=== PATIENT | female | born 1945 | race Caucasian/White ===

== ENCOUNTER 2018-08-17 04:55 | Inpatient (IN) | payer OTHER, BC ==
--- NOTE | 2018-08-17 05:31 | PDOC ---
Attending Attestation - Resident Resident Name: Rosendo Calderonson - ED Attending Attestation I have performed the following: I have examined & evaluated the patient, The case was reviewed & discussed with the resident, I agree w/resident's findings & plan - HPI HPI: 08/17/18 05:41 Pt comes with 1/2 day of CP that radiates to the left arm - Physicial Exam PE: 08/17/18 05:41 Agree with resident exam - Medical Decision Making 08/17/18 05:41 Card enzymes and basic labs pending. EKG is NSY CXR pending. Pt appears well. 08/17/18 06:06 CXR normal; no mediastinal widening. Heart Score/ECG Review - ECG Intrepretation Rhythm: Regular Rhythm - [place]: Normal - P and TN Delta Wave(s) Present: No WPW: No - QRS Poor R Wave Progression: No Q Wave Present: No - ST and T Early Repolarization: No Non Specific ST-T Wave changes: No Flattened T Waves: No Prolonged Q-T Interval: No - ECG Impressions Normal ECG: Yes Non-specific ST Elevation: No Ischemic Changes: No Bradycardia: No Torsades salvatore Pointes: No WPW: No
[2018-08-17] MEDS ORDERED: ASPIRIN 81 MG CHEWABLE TABLETS PO ONE (05:33)
--- NOTE | 2018-08-17 05:35 | PDOC ---
History of Present Illness - General Chief Complaint: Chest Pain Stated Complaint: CHEST PAIN Time Seen by Provider: 08/17/18 05:31 - History of Present Illness Initial Comments: 08/17/18 05:34 73 yo F with h/o RA, HTN, GERD, who p/w left sided chest pain. Patient reports acute onset of left sided chest discomfort this morning ( 1200 AM) radiating to left arm, and left sided neck, and back. Pain is tearing, 6/10, and aggravated with supine positioning. Pain non exertional, non peluritic. Patient pain not improved with omeprazole. Gas-x, mylanta, Carafate. Endorses SOB, Alexis x 2 weeks. No recent sick contacts. Recently returned from [facility] x 2 weeks. Patient denies SIMMONS, leg swelling/pain, palpitations, cough, wheezing, orthopnea, PND, N/V, F,C, urinary complaints, abdominal pain, diarrhea, BPR, hematuria, constipation, lightheadedness, weakness, sensory changes. PMHx: as noted above. Denies h/o ACS/MA, stent placement, CABG, abnml stress testing. Last stress test x 2 ears ago. Prior endoscopy ( nml) Dr. Sterling. Surgical: H/o hysterectomy, and lumpectomy ROS: as noted SHx: Denies tobacco use. Social Etoh. Denies IVDA Past History - Past Medical History Allergies/Adverse Reactions: Allergies Allergy/AdvReac Type Severity Reaction Status Date / Time shellfish derived Allergy Swelling Verified 12/10/14 10:19 hydromorphone HCl AdvReac Verified 12/10/14 10:19 [From Dilaudid] ketoconazole [From Nizoral] AdvReac Verified 12/10/14 10:19 Home Medications: Ambulatory Orders Fexofenadine HCl [Yanique] 60 mg PO DAILY 07/29/14 Folic Acid - 1 mg PO DAILY 07/29/14 Gabapentin [Neurontin -] 300 mg PO HS 07/29/14 Infliximab [Remicade Infusion -] 100 mg IV ASDIR 07/29/14 Levothyroxine [Synthroid -] 100 mcg PO DAILY 07/29/14 Methotrexate [Mexate -] 5 mg PO ASDIR 07/29/14 Metoprolol Succinate [Toprol Xl] 50 mg PO DAILY 07/29/14 Milnacipran HCl [Savella] 12.5 mg PO HS 07/29/14 Montelukast Na [Singulair -] 10 mg PO HS 07/29/14 Multivitamins [Multivit (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) Seizures: No Thyroid Disease: Yes - Surgical History Abdominal Surgery: No Appendectomy: No Cardiac Surgery: No Cholecystectomy: No Lung Surgery: No Neurologic Surgery: No Orthopedic Surgery: Yes (bunion sx) - Suicide/Smoking/Psychosocial Hx Smoking Status: No Smoking History: Never smoked Have you smoked in the past 12 months: No Number of Cigarettes Smoked Daily: 0 Information on smoking cessation initiated: No Hx Alcohol Use: No Drug/Substance Use Hx: No Substance Use Type: None Hx Substance Use Treatment: No Review of Systems - Review of Systems Comments:: 08/17/18 05:34 GENERAL/CONSTITUTIONAL: No fever or chills. No weakness. HEAD, EYES, EARS, NOSE AND THROAT: No change in vision. No ear pain or discharge. No sore throat. CARDIOVASCULAR: + chest pain and shortness of breath RESPIRATORY: No cough, wheezing, or hemoptysis. GASTROINTESTINAL: No nausea, vomiting, diarrhea or constipation. GENITOURINARY: No dysuria, frequency, or change in urination. MUSCULOSKELETAL: No joint or muscle swelling or pain. No neck or back pain. SKIN: No rash NEUROLOGIC: No headache, vertigo, loss of consciousness, or change in strength/ sensation. ENDOCRINE: No increased thirst. No abnormal weight change HEMATOLOGIC/LYMPHATIC: No anemia, easy bleeding, or history of blood clots. ALLERGIC/IMMUNOLOGIC: No hives or skin allergy. *Physical Exam - Vital Signs Last Vital Signs Temp Pulse Resp BP Pulse Ox 97.5 F L 73 18 164/83 98 08/17/18 05:01 08/17/18 05:01 08/17/18 05:01 08/17/18 05:01 08/17/18 05:01 - Physical Exam Comments: 08/17/18 05:35 GENERAL: Awake, alert, and fully oriented, in no acute distress HEAD: No signs of trauma, normocephalic, atraumatic EYES: PERRLA, EOMI, sclera anicteric, conjunctiva clear ENT: Hearing grossly normal, nares patent, oropharynx clear without exudates. Moist mucosa NECK: Normal ROM, supple, no lymphadenopathy, JVD, or masses LUNGS: No distress, speaks full sentences, clear to auscultation bilaterally HEART: Regular rate and rhythm, normal S1 and S2, no murmurs, rubs or gallops, peripheral pulses normal and equal bilaterally. ABDOMEN: + Epigatsirc ttp. Soft, NDS, normoactive bowel sounds. No guarding, no rebound. No masses. Neg CVA ttp. EXTREMITIES : Normal inspection, Normal range of motion, no edema. No clubbing or cyanosis. NEUROLOGICAL: Cranial nerves II through XII grossly intact. Normal speech, normal gait, no focal sensorimotor deficits SKIN: Warm, Dry, normal turgor, no rashes or lesions noted Moderate Sedation - Procedure Monitoring Vital Signs: Procedure Monitoring Vital Signs Temperature 97.5 F L 08/17/18 05:01 Pulse Rate 73 08/17/18 05:01 Respiratory Rate 18 08/17/18 05:01 Blood Pressure 164/83 08/17/18 05:01 O2 Sat by Pulse Oximetry (%) 98 08/17/18 05:01 Heart Score/ECG Review - Risk Factors Risk Factors Heart Score: Yes Positive family hx of cardiac disease ED Treatment Course - LABORATORY CBC & Chemistry Diagram: 08/17/18 05:40 08/17/18 05:40 Medical Decision Making - Medical Decision Making 08/17/18 05:36 3 yo F with h/o RA, HTN, GERD, who p/w left sided chest pain. Patient reports acute onset of left sided chest discomfort this morning ( 1200 AM) radiating to left arm, and left sided neck, and back. BP 164/83, vitals otherwise wnl, AF, A& Ox3. Physical exam notable for epigastria ttp. ACS/MA r/o. R/o PNA. Will consider pericarditis, pericardial or pleural effusion , gastritis, biliary dz., pancreatitis. Low suspicion AAA, Ao dissection. Ed Course: 08/17/18 05:57 Viscous Lidocaine, ASA, Metoprolol 50 mg, Ranitidine 08/17/18 06:02 EKG: NSR with absent acute JON/STD. Nml axis and interval duration. + Q waves I, AvL V4-V6. 08/17/18 06:51 Trop: Neg CBC,CMP: Unremarkable CXR: Unremarkable Plan to admit tele/obs 08/17/18 07:08 Patient endorsed to day team. Plan to admit tele/obs *DC/Admit/Observation/Transfer Diagnosis at time of Disposition: Chest pain at rest - Discharge Dispostion Condition at time of disposition: Stable Decision to Admit order: Yes - Referrals Referrals: Adilene Rodrigez MD [Primary Care Provider] - - Patient Instructions Printed Discharge Instructions: DI for Atypical Chest Pain, DI for Chest Pain - Post Discharge Activity
[2018-08-17] MEDS ORDERED: METOPROLOL TARTRATE 50 MG TABLET (FP) PO ONE (05:50)
[2018-08-17] MEDS ORDERED: LIDOCAINE VISCOUS 2% ORAL/TOP 100 ML BOTTLE MM ONE (05:56)
[2018-08-17] MEDS ORDERED: FAMOTIDINE 20 MG/50 ML IVPB 20 MG/50 ML MG IVPB ONE ×2 (05:56→06:18)
[2018-08-17 06:03] LABS: BASO % 0.3 % (0-2.0); EOS % 0.6 % (0-4.5); HEMOGLOBIN 13.8 GM/dL (10.7-15.3); LYMPH % 18.9 % (8-40); MCH 33.1 pg (25.7-33.7); MCHC 34.5 g/dl (32.0-36.0); MEAN CELL VOLUME 95.9 fl (80-96); MEAN PLT VOLUME 8.6 fl (7.5-11.1); MONO % 7.2 % (3.8-10.2); PLATELET COUNT 191 K/MM3 (134-434); RBC 4.17 M/mm3 (3.60-5.2); RDW 14.7 % (11.6-15.6); WHITE BLOOD COUNT 8.9 K/mm3 (4.0-10.0)
[2018-08-17] MEDS ORDERED: METOPROLOL TARTRATE 50 MG TABLET (FP) ONE (06:09)
[2018-08-17] MEDS ORDERED: ASPIRIN 81 MG CHEWABLE TABLETS ONE (06:09)
[2018-08-17] MEDS ORDERED: LIDOCAINE VISCOUS 2% ORAL/TOP 20 ML UNIT-DOSE CUP ONE (06:18)
[2018-08-17 06:33] LABS: ALBUMIN 3.6 g/dl (3.4-5.0); ALK PHOS 98 U/L (45-117); ANION GAP 7 MMOL/L (8-16); BILIRUBIN,TOTAL 0.2 mg/dL (0.2-1); BLOOD UREA NITROGEN 13 mg/dL (7-18); CALCIUM 8.9 mg/dL (8.5-10.1); CHLORIDE 105 mmol/L (98-107); CO2 28 mmol/L (21-32); GLUCOSE,RANDOM 98 mg/dL (74-106); INR 1.27 (0.83-1.09); POTASSIUM 3.4 mmol/L (3.5-5.1); SGOT/AST 31 U/L (15-37); SGPT/ALT 27 U/L (13-61); SODIUM 139 mmol/L (136-145); TOT PROT 7.7 g/dl (6.4-8.2)
[2018-08-17] MEDS ORDERED: POTASSIUM CHLORIDE TABS 20 MEQ TABLET.ER (FP) PO ONE ×2 (09:57→10:58)
--- NOTE | 2018-08-17 10:10 | PN ---
Teaching Attending Note Name of Resident: Ronald Saul ATTENDING PHYSICIAN STATEMENT I saw and evaluated the patient. I reviewed the resident's note and discussed the case with the resident. I agree with the resident's findings and plan as documented. SUBJECTIVE: This is a 73 year old woman with a history of HTN, GERD, hypothyroidism, RA, osteoporosis who comes to the ED complaining of left sided chest pain radiating to her neck, back, and left arm since 1am. The pain was worse when lying in bed and better when standing. She reports having palpitations and shortness of breath on exertion for the last 2 weeks. She went to the [facility] ~2 weeks ago. She denies calf pain, leg swelling. She sees a merchandise presentation associate, Dr. Joe Balderas, every 6 months. Her last stress test was negative ~2 years ago. OBJECTIVE: Vital Signs Period Temp Pulse Resp BP Sys/Castelan Pulse Ox Last 24 Hr 97.5 F 73 18 164/83 98 HEART: S1S2, RRR LUNGS: Bibasilar crackles ABDOMEN: Soft, non-tender, non-distended, normal BS EXTREMITIES: No edema Laboratory Tests 08/17/18 08/17/18 08/17/18 05:40 05:40 05:40 WBC 8.9 RBC 4.17 Hgb 13.8 Hct 40.0 MCV 95.9 MCH 33.1 MCHC 34.5 RDW 14.7 Plt Count 191 MPV 8.6 Absolute Neuts (auto) 6.5 Neutrophils % 73.0 Lymphocytes % 18.9 D Monocytes % 7.2 Eosinophils % 0.6 D Basophils % 0.3 Nucleated RBC % 0 PT with INR 15.00 H INR 1.27 H D-Dimer Sodium 139 Potassium 3.4 L Chloride 105 Carbon Dioxide 28 Anion Gap 7 L BUN 13 Creatinine 1.0 Creat Clearance w eGFR 54.50 Random Glucose 98 Calcium 8.9 Total Bilirubin 0.2 AST 31 ALT 27 Alkaline Phosphatase 98 Creatine Kinase 178 Creatine Kinase Index 0.8 CK-MB (CK-2) 1.6 Troponin I 0.02 Total Protein 7.7 Albumin 3.6 08/17/18 05:40 WBC RBC Hgb Hct MCV MCH MCHC RDW Plt Count MPV Absolute Neuts (auto) Neutrophils % Lymphocytes % Monocytes % Eosinophils % Basophils % Nucleated RBC % PT with INR INR D-Dimer 2524 H Sodium Potassium Chloride Carbon Dioxide Anion Gap BUN Creatinine Creat Clearance w eGFR Random Glucose Calcium Total Bilirubin AST ALT Alkaline Phosphatase Creatine Kinase Creatine Kinase Index CK-MB (CK-2) Troponin I Total Protein Albumin Home Medications Medication Instructions Recorded Fexofenadine HCl [Yanique] 90 mg PO DAILY 07/29/14 Folic Acid - 1 mg PO DAILY 07/29/14 Gabapentin [Neurontin -] 300 mg PO HS 07/29/14 Infliximab [Remicade Infusion -] 100 mg IV ASDIR 07/29/14 Levothyroxine [Synthroid -] 100 mcg PO DAILY 07/29/14 Methotrexate [Mexate -] 5 mg PO ASDIR 07/29/14 Metoprolol Succinate [Toprol Xl] 50 mg PO DAILY 07/29/14 Milnacipran HCl [Savella] 12.5 mg PO HS 07/29/14 Montelukast Na [Singulair -] 10 mg PO HS 07/29/14 Multivitamins [Multivit ([facility] 1 tab PO DAILY 07/29/14 Formulary)] Vitamin E 400 unit PO BID 07/29/14 Polyethylene Glycol 3350 [Miralax 17 gm PO DAILY #1 bottle 08/01/14 255 gm Btl -] Diphenoxylate 2.5/Atropine.025 1 combo PO Q4H 12/10/14 [Lomotil -] Milnacipran HCl [Savella] 12.5 mg PO DAILY 08/17/18 Omeprazole 40 mg PO DAILY 08/17/18 ASSESSMENT AND PLAN: This is a 73 year old woman with a history of HTN, GERD, hypothyroidism, RA, osteoporosis who presented to the ED with left sided chest pain radiating to her neck, back, and left arm with recent palpitations and SOBOE. 1. Chest pain, palpitations, SOBOE - HEART score 4, PERC 1, Wells 0 - Observe on telemetry - Serial troponins - Echocardiogram - D-dimer is elevated so will do chest CTA (or V/Q secondary to shellfish allergy) - will get pulmonary consult 2. HTN - Continue Toprol XL 3. Hypothyroidism - Continue Synthroid 4. GERD - Continue Prilosec 5. RA - On Remicade, Methotrexate
--- NOTE | 2018-08-17 10:13 | HP ---
CHIEF COMPLAINT: Chest pain PCP: Dr. Adilene Rodrigez HISTORY OF PRESENT ILLNESS: 73 y/o F w/PMH of RA, HTN, GERD, hypothyroidism, osteoporosis presents to the ER with L sided chest pain that began suddenly last night at approximately 11 pm. Pain was 6/10, constant, moved to her back, and then radiated to her L arm. Pain was reproducible only under her breasts. She took omeprazole, gas-x, mylanta, and carafate all with no relief. Pain was worse with laying down but improved with moving around. She has never had pain like this before. She also reports having VEGAS over the last 2-3 weeks. She has not been able to walk on the treadmill as long as usual and she has not been able to climb stairs like she normally can. 2 weeks ago she went to the [facility] but reports VEGAS was before her trip. She denies calf pain, swelling, redness. She also denies light- headedness, dizziness, diaphoresis, abd pain, change in bowel or urinary habits , fevers, chills, nausea, vomiting, sick contacts. She also reports fluttering of her heart in the last 2-3 weeks. Had stress test and echo 2 year ago which were both unremarkable as per pt. ER course was notable for: (1) ASA, pepcid, lidocaine, lopressor (2) (3) Recent Travel: [facility] 2 weeks ago PAST MEDICAL HISTORY:RA, HTN, GERD, hypothyroidism, osteoporosis PAST SURGICAL HISTORY: hysterectomy 1989, lumpectomy 1967 Social History: Smoking: denies Alcohol: 1 glass of wine with dinner occasionally Drugs: denies Family History: Mother passed from VT in 60s. Father passed from stroke in 60s. Allergies shellfish derived Allergy (Verified 12/10/14 10:19) Swelling hydromorphone HCl [From Dilaudid] Adverse Reaction (Verified 12/10/14 10:19) passed out ketoconazole [From Nizoral] Adverse Reaction (Verified 12/10/14 10:19) contacted hepatis HOME MEDICATIONS: Home Medications Medication Instructions Recorded Fexofenadine HCl [Yanique] 90 mg PO DAILY 07/29/14 Folic Acid - 1 mg PO DAILY 07/29/14 Gabapentin [Neurontin -] 300 mg PO HS 02/06/15 Infliximab [Remicade Infusion -] 100 mg IV ASDIR 07/29/14 Levothyroxine [Synthroid -] 100 mcg PO DAILY 07/29/14 Methotrexate [Mexate -] 5 mg PO ASDIR 07/29/14 Metoprolol Succinate [Toprol Xl] 50 mg PO DAILY 07/29/14 Milnacipran HCl [Savella] 12.5 mg PO HS 07/29/14 Montelukast Na [Singulair -] 10 mg PO HS 07/29/14 Multivitamins [Multivit ([facility] 1 tab PO DAILY 07/29/14 Formulary)] Vitamin E 400 unit PO BID 07/29/14 Polyethylene Glycol 3350 [Miralax 17 gm PO DAILY #1 bottle 08/01/14 255 gm Btl -] Diphenoxylate 2.5/Atropine.025 1 combo PO Q4H 12/10/14 [Lomotil -] Milnacipran HCl [Savella] 12.5 mg PO DAILY 08/17/18 Omeprazole 40 mg PO DAILY 08/17/18 REVIEW OF SYSTEMS CONSTITUTIONAL: Absent: fever, chills, diaphoresis, CARDIOVASCULAR: +heart fluttering, chest pain Absent: palpitations, lightheadedness, peripheral edema RESPIRATORY: VEGAS Absent: cough, wheezing GASTROINTESTINAL: Absent: abdominal pain, nausea, vomiting, melena, hematochezia GENITOURINARY: Absent: dysuria, frequency hematuria NEUROLOGIC: Absent: headache, dizziness PHYSICAL EXAMINATION Vital Signs - 24 hr 08/17/18 05:01 Temperature 97.5 F L Pulse Rate 73 Respiratory 18 Rate Blood Pressure 164/83 O2 Sat by Pulse 98 Oximetry (%) BP R arm: 133/62. L arm: 126/69 GENERAL: Awake, alert, and fully oriented, in no acute distress. HEAD: Normal with no signs of trauma. EYES: extraocular movements intact, sclera anicteric, conjunctiva clear. EARS, NOSE, THROAT: Ears normal, nares patent NECK: Normal range of motion, supple LUNGS: Crackles at b/l bases HEART: Regular rate and rhythm, normal S1 and S2. Reproducible pain under b/l breasts with palpation. ABDOMEN: Soft, nontender, not distended, normoactive bowel sounds LOWER EXTREMITIES: warm, well-perfused. No calf tenderness. No peripheral edema. NEUROLOGICAL: Cranial nerves II-XII grossly intact. Normal speech. Gait not observed. PSYCHIATRIC: Cooperative. Good eye contact. Appropriate mood and affect. SKIN: Warm, dry Laboratory Results - last 24 hr 08/17/18 08/17/18 08/17/18 05:40 05:40 05:40 WBC 8.9 RBC 4.17 Hgb 13.8 Hct 40.0 MCV 95.9 MCH 33.1 MCHC 34.5 RDW 14.7 Plt Count 191 MPV 8.6 Absolute Neuts (auto) 6.5 Neutrophils % 73.0 Lymphocytes % 18.9 D Monocytes % 7.2 Eosinophils % 0.6 D Basophils % 0.3 Nucleated RBC % 0 PT with INR 15.00 H INR 1.27 H Sodium 139 Potassium 3.4 L Chloride 105 Carbon Dioxide 28 Anion Gap 7 L BUN 13 Creatinine 1.0 Creat Clearance w eGFR 54.50 Random Glucose 98 Calcium 8.9 Total Bilirubin 0.2 AST 31 ALT 27 Alkaline Phosphatase 98 Creatine Kinase 178 Creatine Kinase Index 0.8 CK-MB (CK-2) 1.6 Troponin I 0.02 Total Protein 7.7 Albumin 3.6 Imaging: CXR - no acute pathology EKG: NSR @ 72 bpm, No ST segment elevations or depressions. No TWI. Q waves in lateral leads not seen on previous EKG in November 2014. ASSESSMENT/PLAN: 73 y/o F w/PMH of RA, HTN, GERD, hypothyroidism, osteoporosis presents to the ER with L sided chest pain. Also reports VEGAS x2-3 weeks and fluttering of heart. -Chest pain -rule out acs -Trend trops -rule out PE. Low risk per WELLS score. Will check D-dimer. If positive will have to consider V/Q scan due to shellfish allergy -D-Dimer is back at 2500. Will get pulmonary to see her for possible V/Q -Pain control with tylenol. Pt does not want stronger pain meds at this time -Check TSH -Unlikely to be dissection - BP R arm: 133/62. L arm 126/69 -VEGAS -tele monitoring -rule out PE. Low risk per WELLS score. Will check D-dimer. If positive will have to consider V/Q scan due to shellfish allergy -D-Dimer is back at 2500. Will get pulmonary to see her for possible V/Q -Will get LE duplex -Pulm consulted -Case discussed with Dr. Goel -Echo -Pt with inspiratory crackles. May have rheumatoid arthritis associated ILD. -Fluttering sensation -r/o arrhythmia -tele monitoring -Echo -HTN -c/w toprol -RA -c/w methotrexate 2.5 mg Friday and Friday weekly -Hypothyroidism -Check TSH, c/w synthroid -DVT ppx -Heparin 5000 units sq q8h -FEN -No fluids currently -Hypokalemia - K-dur PO 40 mg once, monitor electrolytes -Cardiac diet -Dispo Visit type - Emergency Visit Emergency Visit: Yes ED Registration Date: 08/17/18 Care time: The patient presented to the Emergency Department on the above date and was hospitalized for further evaluation of their emergent condition. - New Patient This patient is new to me today: Yes Date on this admission: 08/17/18 - Critical Care Critical Care patient: No
[2018-08-17] MEDS ORDERED: HEPARIN NA (PORCINE) 5,000 UNITS/ML 1ML VIAL ONE ×2 (10:58→14:11)
[2018-08-17] MEDS: HEPARIN NA (PORCINE) 5,000 UNITS/ML 1ML VIAL SQ SCH ×3 (11:10→22:47)
--- NOTE | 2018-08-17 14:05 | CON.PULM ---
Consult Consult Specialty:: PULMONARY Referred by:: Dr. Saunders Reason for Consultation:: r/o PE - History of Present Illness Chief Complaint: chest pain History of Present Illness: 73yo female with h/o HTN, hypothyroidism, GERD, hiatal hernia, rheumatoid arthritis on Remicade who was admitted with sudden onset chest pain. Pain described as constant, "tearing" sensation, across her chest and back, radiating to left arm, worse when lying supine. No fevers, chills or sweats. Denies leg pain or swelling, history of leg trauma. She did take a trip to the [facility] recently and noticed some dyspnea on exertion but after walking "miles. " She is allergic to shellfish, reports generalized swelling. Given pepcid, lidocaine in the ER with significant improvement in her symptoms but back pain persists. - History Source History Provided By: Patient, Medical Record Limitations to Obtaining History: No Limitations - Past Medical History Cardio/Vascular: Yes: HTN Gastrointestinal: Yes: GERD, Hiatal Hernia Endocrine: Yes: Hypothyroidism - Alcohol/Substance Use Hx Alcohol Use: No - Smoking History Smoking history: Never smoked Have you smoked in the past 12 months: No Aproximately how many cigarettes per day: 0 Home Medications - Allergies Allergies/Adverse Reactions: Allergies Allergy/AdvReac Type Severity Reaction Status Date / Time shellfish derived Allergy Swelling Verified 12/10/14 10:19 hydromorphone HCl AdvReac Verified 12/10/14 10:19 [From Dilaudid] ketoconazole [From Nizoral] AdvReac Verified 12/10/14 10:19 - Home Medications Home Medications: Ambulatory Orders Fexofenadine HCl [Yanique] 90 mg PO DAILY 07/29/14 Folic Acid - 1 mg PO DAILY 07/29/14 Gabapentin [Neurontin -] 300 mg PO HS 07/29/14 Infliximab [Remicade Infusion -] 100 mg IV ASDIR 07/29/14 Levothyroxine [Synthroid -] 100 mcg PO DAILY 07/29/14 Methotrexate [Mexate -] 5 mg PO ASDIR 07/29/14 Metoprolol Succinate [Toprol Xl] 50 mg PO DAILY 07/29/14 Milnacipran HCl [Savella] 12.5 mg PO HS 07/29/14 Montelukast Na [Singulair -] 10 mg PO HS 07/29/14 Multivitamins [Multivit ([facility] Formulary)] 1 tab PO DAILY 07/29/14 Vitamin E 400 unit PO BID 07/29/14 Polyethylene Glycol 3350 [Miralax 255 gm Btl -] 17 gm PO DAILY #1 bottle Diphenoxylate 2.5/Atropine.025 [Lomotil -] 1 combo PO Q4H 12/10/14 Milnacipran HCl [Savella] 12.5 mg PO DAILY 08/17/18 Omeprazole 40 mg PO DAILY 08/17/18 Review of Systems - Review of Systems Constitutional: denies: Chills, Fever Eyes: denies: Recent Change in Vision HENT: denies: Nasal Congestion, Throat Pain Neck: denies: Tenderness Cardiovascular: reports: Chest Pain, Palpitations, Shortness of Breath. denies : Edema Respiratory: denies: Cough, Hemoptysis, Wheezing Gastrointestinal: denies: Abdominal Pain, Nausea, Vomiting Genitourinary: denies: Dysuria, Hematuria Neurological: denies: Dizziness, Headache Endocrine: denies: Unexplained Weight Loss Physical Exam Vital Sings: Vital Signs Temperature 97.5 F L 08/17/18 05:01 Pulse Rate 60 08/17/18 11:12 Respiratory Rate 16 08/17/18 11:12 Blood Pressure 140/68 08/17/18 11:12 O2 Sat by Pulse Oximetry (%) 100 08/17/18 11:12 Constitutional: Yes: Calm Eyes: Yes: Conjunctiva Clear, EOM Intact HENT: Yes: Atraumatic, Normocephalic Neck: Yes: Supple, Trachea Midline Cardiovascular: Yes: Regular Rate and Rhythm Respiratory: Yes: Diminished (decreased breath sounds at the bases) ...Clubbing: No Gastrointestinal: Yes: Normal Bowel Sounds, Soft. No: Tenderness Edema: No Neurological: Yes: Alert, Oriented Labs: CBC, BMP 08/17/18 05:40 08/17/18 05:40 Imaging - Results Chest X-ray: Report Reviewed, Image Reviewed (no infiltrates) Problem List - Problems (1) Chest pain at rest Code(s): R07.9 - CHEST PAIN, UNSPECIFIED (2) Rheumatoid arthritis Code(s): M06.9 - RHEUMATOID ARTHRITIS, UNSPECIFIED (3) Hypertension Code(s): I10 - ESSENTIAL (PRIMARY) HYPERTENSION (4) Hypothyroidism Code(s): E03.9 - HYPOTHYROIDISM, UNSPECIFIED Assessment/Plan Atypical Chest Pain r/o PE Rheumatoid Arthritis HTN Hypothyroidism - chest pain atypical and improved without treatment but with an elevated D- dimer, mild hypoxia, and a clear CXR - pt without alternative diagnosis so will order V/Q scan to r/o PE as her shellfish allergy is severe - pt declining empiric anticoagulation at this time - O2 as needed to keep Spo2 >90% Thank you for this consult Tyrone Damon MD
[2018-08-17] MEDS: METHOTREXATE 2.5 MG TABLET PO SCH (14:30)
[2018-08-17 15:37] VITALS: BMI 23.1
--- NOTE | 2018-08-17 15:46 | ECHO ---
Name: WILLIAN JERONIMO Exam:Adult Echocardiogram Study Date: 08/17/2018 12:12 PM Age: 73 yrs Height: 60 in Weight: 123 lb BSA: 1.5 m2 MMode/2D Measurements & Calculations IVSd: 1.3 cm Ao root diam: 2.8 cm LVIDd: 3.5 cm LA dimension: 3.0 cm LVIDs: 2.4 cm LVPWd: 0.87 cm EDV(Teich): 49.7 ml ESV(Teich): 20.7 ml Doppler Measurements & Calculations MV E max tigre: 52.4 cm/sec AI P1/2t: 604.4 msec MV A max tigre: 86.3 cm/sec MV E/A: 0.61 MV dec time: 0.14 sec AI max tigre: 472.5 cm/sec MR max tigre: 465.8 cm/sec AI max P.3 mmHg MR max P.7 mmHg AI dec slope: 229.0 cm/sec2 TR max tigre: 209.0 cm/sec Med Peak E' Tigre: 5.5 cm/sec TR max P.5 mmHg Med E/e': 9.4 Lat Peak E' Tigre: 6.6 cm/sec Lat E/e': 7.9 PI Vmax: 187.3 cm/sec Procedure A complete two-dimensional transthoracic echocardiogram was performed (2D, M-mode, Doppler and color flow Doppler). Left Ventricle The left ventricle is normal in size. There is mild concentric left ventricular hypertrophy. Left rosanne tricular systolic function is normal. Ejection Fraction = 55-60%. Grade I diastolic dysfunction, (abnormal rel axation pattern). Ratio E/E'= 11. No regional wall motion abnormalities noted. Right Ventricle The right ventricle is normal size. The right ventricular systolic function is normal. Atria The left atrial size is normal. Right atrial size is normal. Mitral Valve The mitral valve is normal in structure and function. There is trace to mild mitral regurgitation. Tricuspid Valve The tricuspid valve is normal in structure and function. There is mild tricuspid regurgitation. Right ventricular systolic pressure is normal. Aortic Valve The aortic valve is normal in structure and function. Mild aortic regurgitation. Pulmonic Valve The pulmonic valve is not well visualized. Great Vessels The aortic root is normal size. Pericardium/Pleura There is no pericardial effusion. Interpretation Summary The left ventricle is normal in size. There is mild concentric left ventricular hypertrophy. Left ventricular systolic function is normal. No regional wall motion abnormalities noted. Ejection Fraction = 55-60%. Grade I diastolic dysfunction, (abnormal relaxation pattern). Ratio E/E'= 11 The right ventricular systolic function is normal. The left atrial size is normal. Right atrial size is normal. There is trace to mild mitral regurgitation. There is mild tricuspid regurgitation. Right ventricular systolic pressure is normal. Mild aortic regurgitation. There is no pericardial effusion. Previous study is not available for comparison Dheeraj Parada MD 08/17/2018 03:45 PM
[2018-08-17] MEDS: predniSONE 10 MG TABLET (UD) PO SCH (18:17)
--- NOTE | 2018-08-17 21:26 | EKG ---
Test Reason : Blood Pressure : / mmHG Vent. Rate : 072 BPM Atrial Rate : 072 BPM P-R Int : 140 ms QRS Dur : 076 ms QT Int : 412 ms P-R-T Axes : 060 024 064 degrees QTc Int : 451 ms NORMAL SINUS RHYTHM POSSIBLE LATERAL INFARCT (CITED ON OR BEFORE 10-DEC-2014) ABNORMAL ECG WHEN COMPARED WITH ECG OF 10-DEC-2014 11:02, NO SIGNIFICANT CHANGE WAS FOUND Confirmed by DEBBIE MCKEON, COURT ([id number]) on 08/17/2018 9:25:36 PM Referred By: Confirmed By:COURT LEWIS MD
[2018-08-17] MEDS ORDERED: MONTELUKAST NA 10 MG TABLET PO SCH (22:00)
[2018-08-18] MEDS: HEPARIN NA (PORCINE) 5,000 UNITS/ML 1ML VIAL SQ SCH (05:38)
[2018-08-18] MEDS ORDERED: diphenhydrAMINE HCL 25 MG CAPSULE (FP) PO ONE (07:00)
[2018-08-18] MEDS ORDERED: LEVOTHYROXINE NA 100 MCG TABLET (FP) PO SCH (07:00)
[2018-08-18] MEDS ORDERED: predniSONE 10 MG TABLET (UD) PO SCH ×2 (07:00)
[2018-08-18 07:27] VITALS: BP 114/70; PULSE 68; TEMP 97.8
[2018-08-18 07:55] LABS: HEMATOCRIT 39.2 % (32.4-45.2); HEMOGLOBIN 13.5 GM/dL (10.7-15.3); LYMPH % 12.3 % (8-40); MCHC 34.5 g/dl (32.0-36.0); MEAN CELL VOLUME 95.7 fl (80-96); MEAN PLT VOLUME 9.1 fl (7.5-11.1); MONO % 1.8 % (3.8-10.2); NEUT % 85.9 % (42.8-82.8); PLATELET COUNT 204 K/MM3 (134-434); RBC 4.09 M/mm3 (3.60-5.2); RDW 14.3 % (11.6-15.6); WHITE BLOOD COUNT 6.5 K/mm3 (4.0-10.0)
[2018-08-18] MEDS ORDERED: POTASSIUM CHLORIDE TABS 20 MEQ TABLET.ER (FP) PO ONE (08:51)
[2018-08-18 09:07] LABS: ALBUMIN 3.8 g/dl (3.4-5.0); ALK PHOS 45 U/L (45-117); ANION GAP 9 MMOL/L (8-16); BILIRUBIN,TOTAL 0.6 mg/dL (0.2-1); BLOOD UREA NITROGEN 16 mg/dL (7-18); CALCIUM 8.7 mg/dL (8.5-10.1); CHLORIDE 105 mmol/L (98-107); CO2 22 mmol/L (21-32); CREATININE 0.8 mg/dL (0.55-1.3); GLUCOSE,RANDOM 135 mg/dL (74-106); MAGNESIUM 2.2 mg/dL (1.8-2.4); PHOSPHOROUS 4.3 mg/dL (2.5-4.9); POTASSIUM 4.3 mmol/L (3.5-5.1); SGOT/AST 25 U/L (15-37); SGPT/ALT 31 U/L (13-61); SODIUM 136 mmol/L (136-145); TOT PROT 7.9 g/dl (6.4-8.2)
[2018-08-18] MEDS ORDERED: PT OWN MED DRAWER 7, Y5N ONE (09:11)
[2018-08-18] MEDS: predniSONE 10 MG TABLET (UD) PO SCH (09:18)
--- NOTE | 2018-08-18 09:18 | PN ---
Physical Exam: SUBJECTIVE: Patient seen and examined OBJECTIVE: Vital Signs Period Temp Pulse Resp BP Sys/Castelan Pulse Ox Last 24 Hr 97.8 F-98.7 F 60-78 16-20 107-141/63-74 94-100 GENERAL: The patient is awake, alert, and fully oriented, in no acute distress. HEAD: Normal with no signs of trauma. EYES: PERRL, extraocular movements intact, sclera anicteric, conjunctiva clear. No ptosis. ENT: Ears normal, nares patent, oropharynx clear without exudates, moist mucous membranes. NECK: Trachea midline, full range of motion, supple. LUNGS: Breath sounds equal, clear to auscultation bilaterally, no wheezes, no crackles, no accessory muscle use. HEART: Regular rate and rhythm, S1, S2 without murmur, rub or gallop. ABDOMEN: Soft, nontender, nondistended, normoactive bowel sounds, no guarding, no rebound, no hepatosplenomegaly, no masses. EXTREMITIES: 2+ pulses, warm, well-perfused, no edema. NEUROLOGICAL: Cranial nerves II through XII grossly intact. Normal speech, gait not observed. PSYCH: Normal mood, normal affect. SKIN: Warm, dry, normal turgor, no rashes or lesions noted Laboratory Results - last 24 hr 08/17/18 08/17/18 08/17/18 05:40 05:40 11:12 D-Dimer 2524 H Sodium 139 Potassium 3.4 L Chloride 105 Carbon Dioxide 28 Anion Gap 7 L BUN 13 Creatinine 1.0 Creat Clearance w eGFR 54.50 Random Glucose 98 Calcium 8.9 Phosphorus Magnesium Total Bilirubin 0.2 AST 31 ALT 27 Alkaline Phosphatase 98 Creatine Kinase 178 75 Creatine Kinase Index 0.8 CK-MB (CK-2) 1.6 Troponin I 0.02 < 0.02 Total Protein 7.7 Albumin 3.6 TSH 3.83 H 08/18/18 06:28 D-Dimer Sodium 136 Potassium 4.3 Chloride 105 Carbon Dioxide 22 Anion Gap 9 BUN 16 Creatinine 0.8 Creat Clearance w eGFR > 60 Random Glucose 135 H Calcium 8.7 Phosphorus 4.3 Magnesium 2.2 Total Bilirubin 0.6 AST 25 ALT 31 Alkaline Phosphatase 45 Creatine Kinase Creatine Kinase Index CK-MB (CK-2) Troponin I Total Protein 7.9 Albumin 3.8 TSH Active Medications Generic Name Dose Route Start Last Admin Trade Name Freq PRN Reason Stop Dose Admin Folic Acid 1 mg 08/18/18 10:00 Folic Acid - PO DAILY [facility] Gabapentin 300 mg 08/18/18 22:00 Neurontin - PO HS [facility] Heparin Sodium (Porcine) 5,000 unit 08/17/18 09:45 08/18/18 05:38 Heparin - SQ 5,000 unit TID [facility] Administration Levothyroxine Sodium 100 mcg 08/18/18 07:00 08/18/18 06:25 Synthroid - PO 100 mcg ACBK [facility] Administration Methotrexate 2.5 mg 08/17/18 12:00 08/17/18 14:30 Mexate - PO 2.5 mg MoTu@1000 [facility] Administration Metoprolol Succinate 50 mg 08/18/18 10:00 Toprol Xl - PO DAILY [facility] Montelukast Sodium 10 mg 08/17/18 22:00 08/17/18 22:47 Singulair - PO 10 mg HS [facility] Administration Multivitamins/Minerals/Vitamin C 1 tab 08/18/18 10:00 Tab-A-Vit - PO DAILY [facility] Pantoprazole Sodium 40 mg 08/18/18 10:00 Protonix - PO DAILY [facility] Prednisone 50 mg 08/17/18 19:00 08/17/18 18:17 Deltasone - PO 50 mg DAILY [facility] Administration Prednisone 50 mg 08/18/18 00:00 08/18/18 00:08 Deltasone - PO 50 mg DAILY@0000 [facility] Administration Prednisone 50 mg 08/18/18 07:00 08/18/18 06:25 Deltasone - PO 50 mg DAILY@0700 [facility] Administration CBC, BMP 08/18/18 06:28 ASSESSMENT/PLAN:
[2018-08-18] MEDS: METHOTREXATE 2.5 MG TABLET PO SCH (09:20)
[2018-08-18] MEDS ORDERED: PANTOPRAZOLE 40 MG TABLET (FP) PO SCH (10:00)
[2018-08-18] MEDS ORDERED: METHOTREXATE 2.5 MG TABLET PO SCH (10:00)
[2018-08-18] MEDS ORDERED: MULTIVITAMINS (DAILY MVI) TABLET (FP) PO SCH (10:00)
[2018-08-18] MEDS ORDERED: FOLIC ACID 1 MG TABLET (FP) PO SCH (10:00)
--- NOTE | 2018-08-18 12:20 | PN ---
Progress Note, Physician History of Present Illness: PULMONARY ALERT FEELING BETTER,,-SOB ,CHEST PAIN IMPROVED. CHEST CTA - FOR PE, SMALL RUL NODULE - Current Medication List Current Medications: Active Medications Folic Acid (Folic Acid -) 1 mg PO DAILY [facility] Last Admin: 08/18/18 09:18 Dose: 1 mg Gabapentin (Neurontin -) 300 mg PO HS [facility] Heparin Sodium (Porcine) (Heparin -) 5,000 unit SQ TID [facility] Last Admin: 08/18/18 05:38 Dose: 5,000 unit Levothyroxine Sodium (Synthroid -) 100 mcg PO ACBK [facility] Last Admin: 08/18/18 06:25 Dose: 100 mcg Methotrexate (Mexate -) 2.5 mg PO MoTu@1000 [facility] Last Admin: 08/18/18 09:20 Dose: 2.5 mg Metoprolol Succinate (Toprol Xl -) 50 mg PO DAILY [facility] Last Admin: 08/18/18 09:19 Dose: 50 mg Montelukast Sodium (Singulair -) 10 mg PO [facility] Last Admin: 08/17/18 22:47 Dose: 10 mg Multivitamins/Minerals/Vitamin C (Tab-A-Vit -) 1 tab PO DAILY [facility] Last Admin: 08/18/18 09:18 Dose: 1 tab Pantoprazole Sodium (Protonix -) 40 mg PO DAILY [facility] Last Admin: 08/18/18 09:18 Dose: 40 mg Prednisone (Deltasone -) 50 mg PO DAILY [facility] Last Admin: 08/18/18 09:18 Dose: 50 mg Prednisone (Deltasone -) 50 mg PO DAILY@0000 [facility] Last Admin: 08/18/18 00:08 Dose: 50 mg Prednisone (Deltasone -) 50 mg PO DAILY@0700 [facility] Last Admin: 08/18/18 06:25 Dose: 50 mg - Objective Vital Signs: Vital Signs Temperature 97.8 F 08/18/18 07:21 Pulse Rate 68 08/18/18 07:21 Respiratory Rate 20 08/18/18 07:28 Blood Pressure 114/70 08/18/18 07:21 O2 Sat by Pulse Oximetry (%) 94 L 08/18/18 07:28 Constitutional: Yes: Well Nourished, Calm Eyes: Yes: WNL HENT: Yes: WNL Neck: Yes: WNL Cardiovascular: Yes: Regular Rate and Rhythm, S1, S2 Respiratory: Yes: CTA Bilaterally Gastrointestinal: Yes: Normal Bowel Sounds, Soft Extremities: Yes: WNL Edema: No Labs: CBC, BMP 08/18/18 06:28 08/18/18 06:28 INR, PTT INR 1.27 (0.83-1.09) H 08/17/18 05:40 - ....Imaging Cat Scan: Report Reviewed, Image Reviewed Assessment/Plan Problem List - Problems (1) Chest pain at rest Code(s): R07.9 - CHEST PAIN, UNSPECIFIED (2) Rheumatoid arthritis Code(s): M06.9 - RHEUMATOID ARTHRITIS, UNSPECIFIED (3) Hypertension Code(s): I10 - ESSENTIAL (PRIMARY) HYPERTENSION (4) Hypothyroidism Code(s): E03.9 - HYPOTHYROIDISM, UNSPECIFIED Assessment/Plan Atypical Chest Pain improved r/o PE CHEST CTA NEGATIVE FOR PE Rheumatoid Arthritis HTN Hypothyroidism - chest pain atypical and improved without treatment - O2 as needed to keep Spo2 >90% - F/U chest ct outpatient [address] WHITT
--- NOTE | 2018-08-18 14:15 | PN ---
Teaching Attending Note Name of Resident: Renaldo Carpio ATTENDING PHYSICIAN STATEMENT I saw and evaluated the patient. I reviewed the resident's note and discussed the case with the resident. I agree with the resident's findings and plan as documented. SUBJECTIVE: no fever o chills . No PC or SOB. feels fine. no wheezing or throat closing , or itching. No rash . has chronic rash on her face, but this is prior to her admission OBJECTIVE: NAD , macular rash on cheeks Cv: RRR Lungs: CTAB , no wheezing or crackles Ext: no edema or erythema ASSESSMENT AND PLAN: 73 y/o lady with h/o HTN, GERD, hypothyroidism, RA, osteoporosis, and recent travel who presented with chest pain 1- CP , atypical , resolved. no evidence of ACS. echo reviewed. CTA of chest done after premedications and didnot show PE. no signs of anaphylaxis or allergic reaction to the dye . hiatal hernia might be causing the chest discomfort no futher w/u as inpatient she has appointment with Dr. Brush for EGD and will give dr. Lopez info for surgical eval. she wa also made aware of her gall stones she was also made aware of her lung nodule and the need to follow with pulmonary 2- cont her chronic meds dc home today
--- NOTE | 2018-08-18 18:18 | DS ---
Physical Exam: SUBJECTIVE: Patient seen and examined OBJECTIVE: Vital Signs Period Temp Pulse Resp BP Sys/Castelan Pulse Ox Last 24 Hr 97.8 F-98.0 F 63-76 20-20 107-118/66-74 94-94 PHYSICAL EXAM GENERAL: Awake, alert, and fully oriented, in no acute distress. HEAD: Normal with no signs of trauma. EYES: extraocular movements intact, sclera anicteric, conjunctiva clear. EARS, NOSE, THROAT: Ears normal, nares patent NECK: Normal range of motion, supple LUNGS: CTA B/L HEART: Regular rate and rhythm, normal S1 and S2. Reproducible pain under b/l breasts with palpation. ABDOMEN: Soft, nontender, not distended, normoactive bowel sounds LOWER EXTREMITIES: warm, well-perfused. No calf tenderness. No peripheral edema. NEUROLOGICAL: Cranial nerves II-XII grossly intact. Normal speech. Gait not observed. PSYCHIATRIC: Cooperative. Good eye contact. Appropriate mood and affect. SKIN: Warm, dry LABS Laboratory Results - last 24 hr 08/18/18 08/18/18 06:28 06:28 WBC 6.5 RBC 4.09 Hgb 13.5 Hct 39.2 MCV 95.7 MCH 33.0 MCHC 34.5 RDW 14.3 Plt Count 204 MPV 9.1 Absolute Neuts (auto) 5.6 Neutrophils % 85.9 H Lymphocytes % 12.3 D Monocytes % 1.8 L Eosinophils % 0.0 D Basophils % 0.0 Nucleated RBC % 0 Sodium 136 Potassium 4.3 Chloride 105 Carbon Dioxide 22 Anion Gap 9 BUN 16 Creatinine 0.8 Creat Clearance w eGFR > 60 Random Glucose 135 H Calcium 8.7 Phosphorus 4.3 Magnesium 2.2 Total Bilirubin 0.6 AST 25 ALT 31 Alkaline Phosphatase 45 Total Protein 7.9 Albumin 3.8 CBC, BMP 08/18/18 06:28 08/18/18 06:28 CTA 08/18/18 There is no evidence of a pulmonary embolus within the main pulmonary artery and its proximal branches, bilaterally. Faint opacification of the thoracic aorta without evidence of aneurysmal dilatation or gross dissection down to the included upper abdominal aorta. 4.5 mm pulmonary nodule in the right lung apex which is nonspecific. A follow-up CT scan of the chest in one year would be helpful. Mild atelectatic changes in the right lung base without gross evidence of infiltrates Moderate size hiatus hernia. Questionable tiny gallstone for which correlation with gallbladder ultrasound could be obtained. _ Echocardiogram with no wall motion abnormalities and EF 55-60% m Grade I Diastolic dysfunction , Normal systlic function. no effusion . HOSPITAL COURSE: Date of Admission:08/18/18 Date of Discharge: 08/18/18 73 y/o lady with h/o HTN, GERD, hypothyroidism, RA, osteoporosis, and recent travel who presented with atypical chest pain , resolved. no evidence of ACS. echo with no Motion abnormalities , CTA of chest done after premedications with prednisone and Benadril and did not show PE. no signs of anaphylaxis or allergic reaction to the dye . hiatal hernia might be causing the chest discomfort ,no futher w/u as inpatient. she has appointment with Dr. Brush for EGD and will give dr. Lopez info for surgical eval. she wa also made aware of her gall stones she was also made aware of her lung nodule and the need to follow with pulmonary and repeat CT chest in 6 month. has small gall bladder stone can follow up as out pt with her PCP. she can continue her home meds . pt will be discharged home. Minutes to complete discharge: 45 Discharge Summary Reason For Visit: CHEST PAIN AT REST Condition: Stable - Instructions Diet, Activity, Other Instructions: You presented to the hospital due to chest pain , work up come back negative for Pylmonary embolism the pain is likely due to abdominal hernia you have . You will be discharged home Please resume all your home meds as before admission Please follow up with your primary care physician within one week Please follow up with Dr Brush Desk Attendant , as ou need EGD and further instructions regarding the hernia Please follow up with DR Lopez, General Surgery ,regarding the hernia you have gall stone , please see Dr. lopez for that as well You were found to have small nodule on your lung 4.[address] scan for the chest in 6 months and follow up with Dr Goel as out pt. If you develop sever chest pain , palpitation , Nausea , vomiting, fever , chills or your symptoms worsen please return to hospital or call your primary physician. Referrals: Darrin Lopez MD [Staff Physician] - Dipak Goel MD [Staff Physician] - 01/20/19 Tono Sterling MD [Staff Physician] - 1 Month Adilene Rodrigez MD [Primary Care Provider] - 1 Week Disposition: HOME - Home Medications Comprehensive Discharge Medication List: Ambulatory Orders Fexofenadine HCl [Yanique] 90 mg PO DAILY 07/29/14 Folic Acid - 1 mg PO DAILY 07/29/14 Gabapentin [Neurontin -] 300 mg PO HS 07/29/14 Infliximab [Remicade Infusion -] 100 mg IV ASDIR 07/29/14 Levothyroxine [Synthroid -] 100 mcg PO DAILY 07/29/14 Methotrexate [Mexate -] 5 mg PO ASDIR 07/29/14 Metoprolol Succinate [Toprol Xl] 50 mg PO DAILY 07/29/14 Milnacipran HCl [Savella] 12.5 mg PO HS 07/29/14 Montelukast Na [Singulair -] 10 mg PO HS 07/29/14 Multivitamins [Multivit ([facility] Formulary)] 1 tab PO DAILY 07/29/14 Vitamin E 400 unit PO BID 07/29/14 Polyethylene Glycol 3350 [Miralax 255 gm Btl -] 17 gm PO DAILY #1 bottle Diphenoxylate 2.5/Atropine.025 [Lomotil -] 1 combo PO Q4H 12/10/14 Milnacipran HCl [Savella] 12.5 mg PO DAILY 08/17/18 Omeprazole 40 mg PO DAILY 08/17/18 This patient is new to me today: Yes Date on this admission: 08/18/18 Emergency Visit: Yes ED Registration Date: 08/18/18 Care time: The patient presented to the Emergency Department on the above date and was hospitalized for further evaluation of their emergent condition. Critical Care patient: No - Discharge Referral Referred to [facility] Med P.C.: No
[2018-08-18] MEDS ORDERED: GABAPENTIN 300 MG CAPSULE (FP) PO SCH (22:00)
== END 2018-08-18 14:33 | disposition home or self-care (01) | DRG 313 ==
LOC: JER 04:55 → JERBED 07:08 → J4W 14:43 → OBSVTOIN 08-18 10:30
PROVIDERS: ADMIT Internal Medicine; ATTEND Internal Medicine
DX: R07.89 Other chest pain (principal); I10 Essential (primary) hypertension; K21.9 Gastro-esophageal reflux disease without esophagitis; E03.9 Hypothyroidism, unspecified; M81.0 Age-related osteoporosis without current pathological fracture; M06.9 Rheumatoid arthritis, unspecified; E87.6 Hypokalemia; K44.9 Diaphragmatic hernia without obstruction or gangrene
CPT/HCPCS: 36415; 71045-TC-FY; 71275-TC; 80053; 82550; 82553; 83735; 84100; 84443; 84484; 85025; 85379; 85610; 93005; 93010; 93306-TC; 93970-TC; 99285-25; G0378; J1644; J8610

== ENCOUNTER 2018-10-07 07:15 | Day surgery (SDC) | payer OTHER, BC ==
[2018-10-06 14:17] VITALS: BMI 23.4
[2018-10-07 08:45] VITALS: TEMP 97.2
[2018-10-07 08:46] VITALS: PULSE 60
[2018-10-07 09:23] VITALS: BP 119/68
--- NOTE | 2018-10-08 18:10 | PATH ---
Surgical Pathology Report Patient Name: WILLIAN JERONIMO [facility]. Rec. #: [id number] /Age/Gender: 1945 (Age: 73) / F Account: [id number] Location: [facility]-ENDOSCOPY Taken: 10/07/2018 Received: 10/07/2018 Reported: 10/08/2018 Physicians: Tono Sterling M.D. Specimen(s) Received A: 2ND PORTION DUODENUM AND BULB B: HIATAL HERNIA POLYP C: ANTRUM D: GE JUNCTION Clinical History Non cardiac chest pain, GERD Postoperative diagnosis: Large hiatal hernia, GERD, gastric ulcer, gastric polyp Final Diagnosis A. DUODENUM, SECOND PORTION, DUODENAL BULB, BIOPSY: DUODENAL MUCOSA WITHOUT SIGNIFICANT PATHOLOGIC FINDINGS. B. HIATAL HERNIA, POLYP, BIOPSY: GASTRIC MUCOSA WITH MILD CHRONIC GASTRITIS AND MILD FOVEOLAR HYPERPLASIA. IMMUNOHISTOCHEMICAL STAIN FOR H. PYLORI IS NEGATIVE. C. STOMACH ANTRUM, BIOPSY: GASTRIC ANTRAL MUCOSA WITH MILD CHRONIC GASTRITIS. IMMUNOHISTOCHEMICAL STAIN FOR H. PYLORI IS NEGATIVE. D. GE JUNCTION, BIOPSY: SQUAMOCOLUMNAR MUCOSA WITH MILD CHRONIC INFLAMMATION AND CHANGES OF MILD REFLUX ESOPHAGITIS. NO INTESTINAL METAPLASIA OR DYSPLASIA IDENTIFIED. Electronically Signed Latisha Weaver M.D. Gross Description A. Received in formalin, labeled "biopsy second portion of duodenum and duodenal bulb" are 4 chapa, irregular portions of soft tissue ranging from 0.1-0.4 cm. in greatest dimension. The specimens are submitted in toto in one cassette. B. Received in formalin, labeled "biopsy polyp hiatal hernia" are 2 chapa, irregular portions of soft tissue measuring 0.3 and 0.4 cm. in greatest dimension. The specimens are submitted in toto in one cassette. C. Received in formalin, labeled "biopsy antrum" are 2 chapa, irregular portions of soft tissue measuring 0.2 and 0.4 cm. in greatest dimension. The specimens are submitted in toto in one cassette. D. Received in formalin, labeled "biopsy GE junction" are 3 chapa, irregular portions of soft tissue averaging 0.3 cm. in greatest dimension. The specimens are submitted in toto in one cassette. DL/10/07/2018 saudi10/07/2018
== END 2018-10-07 09:39 | disposition home or self-care (01) ==
LOC: JASU-ENDO 07:15
PROVIDERS: ATTEND Internal Medicine Gastroenterology
PROC: 0DB68ZX Excision of Stomach, Via Natural or Artificial Opening Endoscopic, Diagnostic (ICD-10-PCS; 2018-10-07)
PROC: 0DB48ZX Excision of Esophagogastric Junction, Via Natural or Artificial Opening Endoscopic, Diagnostic (ICD-10-PCS; 2018-10-07)
PROC: 0DB98ZX Excision of Duodenum, Via Natural or Artificial Opening Endoscopic, Diagnostic (ICD-10-PCS; principal; 2018-10-07 08:00)
DX: K31.7 Polyp of stomach and duodenum (principal); K29.50 Unspecified chronic gastritis without bleeding; K21.0 Gastro-esophageal reflux disease with esophagitis; K44.9 Diaphragmatic hernia without obstruction or gangrene; K21.9 Gastro-esophageal reflux disease without esophagitis; K25.9 Gastric ulcer, unspecified as acute or chronic, without hemorrhage or perforation
CPT/HCPCS: 88305-TC; 88342-TC

== ENCOUNTER 2024-04-28 04:58 | Day surgery (SDC) | payer OTHER, BC ==
[2024-04-28 10:07] VITALS: BMI 24.4
[2024-04-28] MEDS ORDERED: MIDAZOLAM HCL 2 MG/2 ML SINGLE DOSE VIAL ONE (10:09)
[2024-04-28 10:49] VITALS: TEMP 97.8
[2024-04-28 11:20] VITALS: BP 130/60; PULSE 69; RESP 16
== END 2024-04-28 11:29 | disposition home or self-care (01) ==
LOC: JASU-ENDO 04:58
PROVIDERS: ATTEND Internal Medicine Gastroenterology
PROC: 0DJD8ZZ Inspection of Lower Intestinal Tract, Via Natural or Artificial Opening Endoscopic (ICD-10-PCS; principal; 2024-04-28 10:00)
DX: Z12.11 Encounter for screening for malignant neoplasm of colon (principal); K57.30 Diverticulosis of large intestine without perforation or abscess without bleeding; Z86.0100 Personal history of colon polyps, unspecified